=== PATIENT | female | born 1985 | race Caucasian/White ===

== ENCOUNTER → 2018-09-15 23:15 | Outpatient (CLI) | payer OTHER, SELFPAY ==
[2018-09-23 08:13] LABS: HPV HC, High Risk Negative (Negative)
[2018-09-23 08:22] LABS: HPV Reflexed? YES, CHARGE PATIENT
== END ==
PROVIDERS: Visit Provider Obstetrics & Gynecology
DX: Z12.4 Encounter for screening for malignant neoplasm of cervix (principal)
CPT/HCPCS: 87624; 88175; G0145

== ENCOUNTER → 2019-04-06 17:50 | Outpatient (CLI) | payer OTHER, SELFPAY ==
[2019-04-08 15:58] LABS: HPV Reflexed? NOT INDICATED
== END ==
PROVIDERS: Referring Provider Obstetrics & Gynecology; Visit Provider Obstetrics & Gynecology
DX: R87.610 Atypical squamous cells of undetermined significance on cytologic smear of cervix (ASC-US) (principal)
CPT/HCPCS: 88175; G0145

== ENCOUNTER 2019-08-18 06:58 | Day surgery (SDC) | payer OTHER, SELFPAY ==
--- NOTE | 2019-08-11 09:50 | HP_ITS ---
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 Is patient in pain?: No Allergies azithromycin Allergy (Mild, Verified 08/09/19 14:57) Other Penicillins Allergy (Mild, Verified 08/09/19 14:57) Unknown Sulfa (Sulfonamide Antibiotics) Allergy (Mild, Verified 08/09/19 14:57) Unknown Medications apple cider vinegar 600 mg capsule mg PO cap 08/09/19 [History Confirmed 08/09/19] bile yjnse-myds-cmjl-phenolpth tablet tab PO tab 08/09/19 [History] cholecalciferol (vitamin D3) 1,000 unit capsule 1,000 unit PO DAILY 08/09/19 [History Confirmed 08/09/19] choline bitartrate ER 300 mg tablet,extended release mg PO tab 08/09/19 [History Confirmed 08/09/19] digestive enzymes capsule 1 cap PO DAILY 08/09/19 [History] g.olji-fhhsfys-idt clover-yl yj-cnef-kclb-milk thist 500 mg-100 mg cap cap PO cap 08/09/19 [History] josé antonio root 325 mg-pyridoxine HCl (vitamin B6) 25 mg capsule cap PO cap 08/09/19 [History Confirmed 08/09/19] omeprazole 40 mg capsule,delayed release 40 mg PO DAILY 08/09/19 [History Confirmed 08/09/19] progesterone micronized 100 mg capsule 100 mg PO QAM 08/09/19 [History Confirmed 08/09/19] PFSH Medical History Fibromyalgia (Acute) GERD (gastroesophageal reflux disease) (Acute) Surgical History S/P abdominal hysterectomy (Acute) S/P endometrial ablation (Acute) Family History Grandfather Diabetes Heart disease CVA (cerebral vascular accident) Hypertension Grandmother Breast cancer Hypertension Thyroid disorder Mother Hypertension Colon cancer Thyroid disorder Social History (Updated 08/11/19 @ 09:50 by Musa Vizcaino MD) Smoking Status: Never smoker alcohol intake: never HPI HPI HPI: LASHAUN GARCIAS, is a 34 F who presents to the office today for HPI HPI Surgical H&P: Yes HPI: LASHAUN GARCIAS, is a 34 F who presents to the office today for several issues. Patient reports that she is in need of screening colonoscopy as her mother had colon cancer at the age of 43 and her last colonoscopy was 12 years ago. Patient also reports that she has had having severe GERD and is PPI dependent and would like to get off of her PPI. Patient is also having right upper quadrant pain when eating which radiates to the back. She had an ultrasound performed showed a large gallstone. ROS General General: No weight change or fatigue Cardio Cardiovascular: No murmur, pacemaker, heart disease, atrial fibrillation, high blood pressure, heart attack, heart stent, palpitations, shortness of breat with exertion or chest pain Psych Psychiatric: No depression or anxiety Resp Respiratory: No shortness of breath, No sleep apnea, No cough, No COPD, No asthma, No emphysema, No wheezing Gastro Gastrointestinal: Yes abdominal pain, Yes nausea or vomiting, No diarrhea, No constipation, No blood in stool, Yes acid reflux, No hemorrhoids, No ulcers, Yes gallbladder problem, No black,tarry stools Lionel Hematologic: No blood thinners Exam Const General: cooperative Orientation: alert, oriented x3 HENMT Head: normal to inspection Ears: hearing grossly normal bilaterally Eyes General: appearance normal, both eyes and all related structures Visual Lowe: normal visual lowe by confrontation Neck Neck: normal visual inspection Chest Chest palpation & inspection: normal inspection of the chest Resp Effort & Inspection: normal respiratory effort Auscultation: clear to auscultation bilaterally Cardio Rate: regular rate Rhythm: regular rhythm Heart Sounds: no murmurs GI Inspection: non-distended Palpation: soft, tender in the RUQ Musc Cervical Spine: normal cervical lordosis, cervical ROM normal Skin General: no rashes or lesions noted Neuro General: alert, oriented x3 Cranial Nerves: CN's II-XI intact bilaterally Cognition: normal cognition Extrem General: normal to inspection, full ROM Psych Appearance: grossly normal Affect: normal affect Assessment & Plan 1. Calculus of gallbladder without cholecystitis without obstruction K80.20 Plan Patient has calculus of the gallbladder and she is having pain typical of biliary colic. She reports right upper quadrant pain after eating which radiates to the back. I recommend laparoscopic cholecystectomy which may be done at the same time as Bala fundoplication. 2. Gastroesophageal reflux disease, esophagitis presence not specified K21.9 Plan Patient has long-standing GERD and would like to get off PPI. I discussed Bala fundoplication with her. I would recommend the patient first have manometry and EGD with pH probe. She will return to clinic after this is performed to discuss laparoscopic Bala fundoplication with concurrent laparoscopic cholecystectomy. Patient has a history of Orders Orders: EGD with 48 pH probe 08/10/19 Esophageal Manometry 08/10/19 3. Family history of malignant neoplasm of colon in first degree relative diagnosed when younger than 60 years of age Z80.0 Plan Patient has history of malignancy of the colon of her mother at age 43. Patient should be having screening colonoscopies every 5 years according to guidelines. I recommend that she had a screening colonoscopy at the same time of her EGD as pH probe. I explained endoscopy in detail to the patient. I explained the risks including but not limited to stroke or heart attack with anesthesia, perforation of the GI tract, bleeding, infection. I explained that any of these could necessitate further emergency surgery. The patient understands and all questions were answered sufficiently. The patient wishes to proceed with procedure. Musa Vizcaino MD Pager: [facility] [address] [place] [address], [address] [place] [address] Office: Orders Orders: Colonoscopy 08/10/19 Coding Level of Care Code Off vis,new,level 4 Diagnoses Calculus of gallbladder without cholecystitis without obstruction K80.20 ??Cholelithiasis location: gallbladder ??Cholecystitis presence: without cholecystitis ??Biliary obstruction: without biliary obstruction Gastroesophageal reflux disease, esophagitis presence not specified K21.9 ??Esophagitis presence: esophagitis presence not specified Family history of malignant neoplasm of colon in first degree relative diagnosed when younger than 60 years of age Z80.0 Time Spent (min) 45 08/11/19 0963 <Electronically signed by Musa celaya MD> Date _ Musa Vizcaino MD
[2019-08-18 07:15] VITALS: BP 123/85; PULSE 71; RESP 16; TEMP 36.8; O2SAT 100
== END 2019-08-18 07:54 | disposition home or self-care (01) ==
PROVIDERS: Family Provider Family Medicine; PCP Family Medicine; Referring Provider Family Medicine; Visit Provider Surgery
PROC: F00ZJWZ Instrumental Swallowing and Oral Function Assessment using Swallowing Equipment (ICD-10-PCS; CPT 43235; principal; 2019-08-18 06:55)
DX: K21.9 Gastro-esophageal reflux disease without esophagitis (principal); K80.20 Calculus of gallbladder without cholecystitis without obstruction; Z80.0 Family history of malignant neoplasm of digestive organs
CPT/HCPCS: 91010

== ENCOUNTER 2019-08-30 08:29 | Day surgery (SDC) | payer OTHER, SELFPAY ==
--- NOTE | 2019-08-11 09:50 | HP_ITS ---
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 Is patient in pain?: No Allergies azithromycin Allergy (Mild, Verified 08/09/19 14:57) Other Penicillins Allergy (Mild, Verified 08/09/19 14:57) Unknown Sulfa (Sulfonamide Antibiotics) Allergy (Mild, Verified 08/09/19 14:57) Unknown Medications apple cider vinegar 600 mg capsule mg PO cap 08/09/19 [History Confirmed 08/09/19] bile objmv-tzfz-ypyb-phenolpth tablet tab PO tab 08/09/19 [History] cholecalciferol (vitamin D3) 1,000 unit capsule 1,000 unit PO DAILY 08/09/19 [History Confirmed 08/09/19] choline bitartrate ER 300 mg tablet,extended release mg PO tab 08/09/19 [History Confirmed 08/09/19] digestive enzymes capsule 1 cap PO DAILY 08/09/19 [History] g.wyxb-eorhbeo-gql clover-yl eg-owuo-zvwj-milk thist 500 mg-100 mg cap cap PO cap 08/09/19 [History] josé antonio root 325 mg-pyridoxine HCl (vitamin B6) 25 mg capsule cap PO cap 08/09/19 [History Confirmed 08/09/19] omeprazole 40 mg capsule,delayed release 40 mg PO DAILY 08/09/19 [History Confirmed 08/09/19] progesterone micronized 100 mg capsule 100 mg PO QAM 08/09/19 [History Confirmed 08/09/19] PFSH Medical History Fibromyalgia (Acute) GERD (gastroesophageal reflux disease) (Acute) Surgical History S/P abdominal hysterectomy (Acute) S/P endometrial ablation (Acute) Family History Grandfather Diabetes Heart disease CVA (cerebral vascular accident) Hypertension Grandmother Breast cancer Hypertension Thyroid disorder Mother Hypertension Colon cancer Thyroid disorder Social History (Updated 08/11/19 @ 09:50 by Musa Vizcaino MD) Smoking Status: Never smoker alcohol intake: never HPI HPI HPI: LASHAUN GARCIAS, is a 34 F who presents to the office today for HPI HPI Surgical H&P: Yes HPI: LASHAUN GARCIAS, is a 34 F who presents to the office today for several issues. Patient reports that she is in need of screening colonoscopy as her mother had colon cancer at the age of 43 and her last colonoscopy was 12 years ago. Patient also reports that she has had having severe GERD and is PPI dependent and would like to get off of her PPI. Patient is also having right upper quadrant pain when eating which radiates to the back. She had an ultrasound performed showed a large gallstone. ROS General General: No weight change or fatigue Cardio Cardiovascular: No murmur, pacemaker, heart disease, atrial fibrillation, high blood pressure, heart attack, heart stent, palpitations, shortness of breat with exertion or chest pain Psych Psychiatric: No depression or anxiety Resp Respiratory: No shortness of breath, No sleep apnea, No cough, No COPD, No asthma, No emphysema, No wheezing Gastro Gastrointestinal: Yes abdominal pain, Yes nausea or vomiting, No diarrhea, No constipation, No blood in stool, Yes acid reflux, No hemorrhoids, No ulcers, Yes gallbladder problem, No black,tarry stools Lionel Hematologic: No blood thinners Exam Const General: cooperative Orientation: alert, oriented x3 HENMT Head: normal to inspection Ears: hearing grossly normal bilaterally Eyes General: appearance normal, both eyes and all related structures Visual Lowe: normal visual lowe by confrontation Neck Neck: normal visual inspection Chest Chest palpation & inspection: normal inspection of the chest Resp Effort & Inspection: normal respiratory effort Auscultation: clear to auscultation bilaterally Cardio Rate: regular rate Rhythm: regular rhythm Heart Sounds: no murmurs GI Inspection: non-distended Palpation: soft, tender in the RUQ Musc Cervical Spine: normal cervical lordosis, cervical ROM normal Skin General: no rashes or lesions noted Neuro General: alert, oriented x3 Cranial Nerves: CN's II-XI intact bilaterally Cognition: normal cognition Extrem General: normal to inspection, full ROM Psych Appearance: grossly normal Affect: normal affect Assessment & Plan 1. Calculus of gallbladder without cholecystitis without obstruction K80.20 Plan Patient has calculus of the gallbladder and she is having pain typical of biliary colic. She reports right upper quadrant pain after eating which radiates to the back. I recommend laparoscopic cholecystectomy which may be done at the same time as Abla fundoplication. 2. Gastroesophageal reflux disease, esophagitis presence not specified K21.9 Plan Patient has long-standing GERD and would like to get off PPI. I discussed Bala fundoplication with her. I would recommend the patient first have manometry and EGD with pH probe. She will return to clinic after this is performed to discuss laparoscopic Bala fundoplication with concurrent laparoscopic cholecystectomy. Patient has a history of Orders Orders: EGD with 48 pH probe 08/10/19 Esophageal Manometry 08/10/19 3. Family history of malignant neoplasm of colon in first degree relative diagnosed when younger than 60 years of age Z80.0 Plan Patient has history of malignancy of the colon of her mother at age 43. Patient should be having screening colonoscopies every 5 years according to guidelines. I recommend that she had a screening colonoscopy at the same time of her EGD as pH probe. I explained endoscopy in detail to the patient. I explained the risks including but not limited to stroke or heart attack with anesthesia, perforation of the GI tract, bleeding, infection. I explained that any of these could necessitate further emergency surgery. The patient understands and all questions were answered sufficiently. The patient wishes to proceed with procedure. Musa Vizcaino MD Pager: [facility] [address] [place] [address], [address] [place] [address] Office: Orders Orders: Colonoscopy 08/10/19 Coding Level of Care Code Off vis,new,level 4 Diagnoses Calculus of gallbladder without cholecystitis without obstruction K80.20 ??Cholelithiasis location: gallbladder ??Cholecystitis presence: without cholecystitis ??Biliary obstruction: without biliary obstruction Gastroesophageal reflux disease, esophagitis presence not specified K21.9 ??Esophagitis presence: esophagitis presence not specified Family history of malignant neoplasm of colon in first degree relative diagnosed when younger than 60 years of age Z80.0 Time Spent (min) 45 08/11/19 0932 <Electronically signed by Musa celaya MD> Date _ Musa Vizcaino MD
[2019-08-30] VITALS (7 sets, daily range): BP systolic 88–108; BP diastolic 49–68; PULSE 66–78; RESP 16–18; TEMP 36.1–36.7; O2SAT 96–100; BMI 31.9
[2019-08-30] MEDS: Lactated Ringers 1,000 ML 100 ML IV (09:13)
--- NOTE | 2019-08-30 09:18 | PCM.HP.BLA ---
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 Is patient in pain?: No Allergies azithromycin Allergy (Mild, Verified 08/09/19 14:57) Other Penicillins Allergy (Mild, Verified 08/09/19 14:57) Unknown Sulfa (Sulfonamide Antibiotics) Allergy (Mild, Verified 08/09/19 14:57) Unknown Medications apple cider vinegar 600 mg capsule mg PO cap 08/09/19 [History Confirmed 08/09/19] bile sfmsx-zggw-jrvq-phenolpth tablet tab PO tab 08/09/19 [History] cholecalciferol (vitamin D3) 1,000 unit capsule 1,000 unit PO DAILY 08/09/19 [History Confirmed 08/09/19] choline bitartrate ER 300 mg tablet,extended release mg PO tab 08/09/19 [History Confirmed 08/09/19] digestive enzymes capsule 1 cap PO DAILY 08/09/19 [History] gDanielaggfg-fxfzjdm-kxu clover-yl ex-tvma-yroz-milk thist 500 mg-100 mg cap cap PO cap 08/09/19 [History] josé antonio root 325 mg-pyridoxine HCl (vitamin B6) 25 mg capsule cap PO cap 08/09/19 [History Confirmed 08/09/19] omeprazole 40 mg capsule,delayed release 40 mg PO DAILY 08/09/19 [History Confirmed 08/09/19] progesterone micronized 100 mg capsule 100 mg PO QAM 08/09/19 [History Confirmed 08/09/19] PFSH Medical History Fibromyalgia (Acute) GERD (gastroesophageal reflux disease) (Acute) Surgical History S/P abdominal hysterectomy (Acute) S/P endometrial ablation (Acute) Family History Grandfather Diabetes Heart disease CVA (cerebral vascular accident) Hypertension Grandmother Breast cancer Hypertension Thyroid disorder Mother Hypertension Colon cancer Thyroid disorder Social History (Updated 08/11/19 @ 09:50 by Musa Vizcaino MD) Smoking Status: Never smoker alcohol intake: never HPI HPI HPI: LASHAUN GARCIAS, is a 34 F who presents to the office today for HPI HPI Surgical H&P: Yes HPI: LASHAUN GARCIAS, is a 34 F who presents to the office today for several issues. Patient reports that she is in need of screening colonoscopy as her mother had colon cancer at the age of 43 and her last colonoscopy was 12 years ago. Patient also reports that she has had having severe GERD and is PPI dependent and would like to get off of her PPI. Patient is also having right upper quadrant pain when eating which radiates to the back. She had an ultrasound performed showed a large gallstone. ROS General General: No weight change or fatigue Cardio Cardiovascular: No murmur, pacemaker, heart disease, atrial fibrillation, high blood pressure, heart attack, heart stent, palpitations, shortness of breat with exertion or chest pain Psych Psychiatric: No depression or anxiety Resp Respiratory: No shortness of breath, No sleep apnea, No cough, No COPD, No asthma, No emphysema, No wheezing Gastro Gastrointestinal: Yes abdominal pain, Yes nausea or vomiting, No diarrhea, No constipation, No blood in stool, Yes acid reflux, No hemorrhoids, No ulcers, Yes gallbladder problem, No black,tarry stools Lionel Hematologic: No blood thinners Exam Const General: cooperative Orientation: alert, oriented x3 HENMT Head: normal to inspection Ears: hearing grossly normal bilaterally Eyes General: appearance normal, both eyes and all related structures Visual Lowe: normal visual lowe by confrontation Neck Neck: normal visual inspection Chest Chest palpation & inspection: normal inspection of the chest Resp Effort & Inspection: normal respiratory effort Auscultation: clear to auscultation bilaterally Cardio Rate: regular rate Rhythm: regular rhythm Heart Sounds: no murmurs GI Inspection: non-distended Palpation: soft, tender in the RUQ Musc Cervical Spine: normal cervical lordosis, cervical ROM normal Skin General: no rashes or lesions noted Neuro General: alert, oriented x3 Cranial Nerves: CN's II-XI intact bilaterally Cognition: normal cognition Extrem General: normal to inspection, full ROM Psych Appearance: grossly normal Affect: normal affect Assessment & Plan 1. Calculus of gallbladder without cholecystitis without obstruction K80.20 Plan Patient has calculus of the gallbladder and she is having pain typical of biliary colic. She reports right upper quadrant pain after eating which radiates to the back. I recommend laparoscopic cholecystectomy which may be done at the same time as Bala fundoplication. 2. Gastroesophageal reflux disease, esophagitis presence not specified K21.9 Plan Patient has long-standing GERD and would like to get off PPI. I discussed Bala fundoplication with her. I would recommend the patient first have manometry and EGD with pH probe. She will return to clinic after this is performed to discuss laparoscopic Bala fundoplication with concurrent laparoscopic cholecystectomy. Patient has a history of Orders Orders: EGD with 48 pH probe 08/10/19 Esophageal Manometry 08/10/19 3. Family history of malignant neoplasm of colon in first degree relative diagnosed when younger than 60 years of age Z80.0 Plan Patient has history of malignancy of the colon of her mother at age 43. Patient should be having screening colonoscopies every 5 years according to guidelines. I recommend that she had a screening colonoscopy at the same time of her EGD as pH probe. I explained endoscopy in detail to the patient. I explained the risks including but not limited to stroke or heart attack with anesthesia, perforation of the GI tract, bleeding, infection. I explained that any of these could necessitate further emergency surgery. The patient understands and all questions were answered sufficiently. The patient wishes to proceed with procedure. Musa Vizcaino MD Pager: [facility] [address] [place] [address], [address] [place] [address] Office:
--- NOTE | 2019-08-30 10:19 | OP.ENDO_ITS ---
08/30/2019 Rubens Dougherty Md Re : Upper GI endoscopy procedure for Arley Collado Dear Farhat This procedure was performed on Friday, August 30, 2019. My impressions and recommendations are as follows: Impressions : - Normal esophagus. - Normal stomach. - Normal examined duodenum. - The CAR pH capsule was positioned 36 cm from the incisors, which was 6 cm proximal to the GE junction. - No specimens collected. Recommendations : - Discharge patient to home. - Resume previous diet. - Continue present medications. - Return to my office in 2 weeks. My findings are described in the full procedure note, which is enclosed. If I can be of further assistance, please feel free to contact me at Doctor phone number(s): , Work: . Sincerely, Musa Vizcaino MD 08/30/2019 10:19:06 AM This report has been signed electronically.
--- NOTE | 2019-08-30 10:21 | OP.ENDO_ITS ---
08/30/2019 Rubens Dougherty Md Re : Colonoscopy procedure for Arley Collado Dear Farhat This procedure was performed on Friday, August 30, 2019. My impressions and recommendations are as follows: Impressions : - The entire examined colon is normal on direct and retroflexion views. - No specimens collected. Recommendations : - Resume previous diet. - Continue present medications. - Repeat colonoscopy in 5 years for screening purposes. My findings are described in the full procedure note, which is enclosed. If I can be of further assistance, please feel free to contact me at Doctor phone number(s): , Work: . Sincerely, Musa Vizcaino MD 08/30/2019 10:20:51 AM This report has been signed electronically.
== END 2019-08-30 11:31 | disposition home or self-care (01) ==
LOC: EN 08:30 → AC 08:31
PROVIDERS: Family Provider Family Medicine; PCP Family Medicine; Referring Provider Family Medicine; Visit Provider Surgery
PROC: 0DJD8ZZ Inspection of Lower Intestinal Tract, Via Natural or Artificial Opening Endoscopic (ICD-10-PCS; CPT 45378; principal; 2019-08-30 09:25)
DX: K21.9 Gastro-esophageal reflux disease without esophagitis (principal); Z12.11 Encounter for screening for malignant neoplasm of colon; Z80.0 Family history of malignant neoplasm of digestive organs; K80.20 Calculus of gallbladder without cholecystitis without obstruction; M79.7 Fibromyalgia
CPT/HCPCS: 43235; 45378; J7120; J2405

== ENCOUNTER 2019-10-03 14:50 | Observation (INO) | payer OTHER, SELFPAY ==
[2019-09-13 08:46] VITALS: BMI 31.9
--- NOTE | 2019-09-14 01:09 | HP_ITS ---
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 Is patient in pain?: Yes (epigastric and RUQ pain) Allergies azithromycin Allergy (Mild, Verified 09/13/19 08:46) Other Penicillins Allergy (Mild, Verified 09/13/19 08:46) Unknown Sulfa (Sulfonamide Antibiotics) Allergy (Mild, Verified 09/13/19 08:46) Unknown Medications apple cider vinegar 600 mg capsule 600 mg PO DAILY PRN cap 08/09/19 [History Confirmed 09/13/19] bile xcyji-zrkk-hbnu-phenolpth tablet 1 tab PO DAILY tab 08/09/19 [History Confirmed 09/13/19] cholecalciferol (vitamin D3) 1,000 unit capsule 1,000 unit PO DAILY 08/09/19 [History Confirmed 09/13/19] choline bitartrate ER 300 mg tablet,extended release 300 mg PO DAILY tab 08/09/19 [History Confirmed 09/13/19] digestive enzymes capsule 1 cap PO DAILY 08/09/19 [History Confirmed 09/13/19] g.lgap-orwpayf-llw clover-yl ln-icvn-ybvh-milk thist 500 mg-100 mg cap 1 cap PO DAILY cap 08/09/19 [History Confirmed 09/13/19] josé antonio root 325 mg-pyridoxine HCl (vitamin B6) 25 mg capsule 1 cap PO DAILY cap 08/09/19 [History Confirmed 09/13/19] omeprazole 40 mg capsule,delayed release 40 mg PO DAILY 08/09/19 [History Confirmed 09/13/19] progesterone micronized 100 mg capsule 100 mg PO QAM 08/09/19 [History Confirmed 09/13/19] PFSH Medical History Fibromyalgia (Acute) GERD (gastroesophageal reflux disease) (Acute) Surgical History S/P abdominal hysterectomy (Acute) S/P endometrial ablation (Acute) Family History Grandfather Diabetes Heart disease CVA (cerebral vascular accident) Hypertension Grandmother Breast cancer Hypertension Thyroid disorder Mother Hypertension Colon cancer Thyroid disorder Social History (Updated 09/14/19 @ 10:14 by Musa Vizcaino MD) Smoking Status: Never smoker alcohol intake: never HPI HPI HPI: LASHAUN GARCIAS, is a 34 F who presents to the office today for HPI HPI Surgical H&P: Yes HPI: LASHAUN GARCIAS, is a 34 F who presents to the office today for discussion of surgical options. The patient underwent colonoscopy as well as EGD with pH probe and manometry. ROS General General: No weight change or fatigue Cardio Cardiovascular: No murmur, pacemaker, heart disease, atrial fibrillation, high blood pressure, heart attack, heart stent, palpitations, shortness of breat with exertion or chest pain Psych Psychiatric: No depression or anxiety Resp Respiratory: No shortness of breath, No sleep apnea, No cough, No COPD, No asthma, No emphysema, No wheezing Gastro Gastrointestinal: Yes abdominal pain, Yes nausea or vomiting, No diarrhea, No constipation, No blood in stool, Yes acid reflux, No hemorrhoids, No ulcers, Yes gallbladder problem, No black,tarry stools Lionel Hematologic: No blood thinners Exam Const General: cooperative Orientation: alert, oriented x3 Resp Effort & Inspection: normal respiratory effort Auscultation: clear to auscultation bilaterally Cardio Rate: regular rate Rhythm: regular rhythm Heart Sounds: no murmurs GI Inspection: non-distended Palpation: soft, nontender Assessment & Plan Problems 1. Calculus of gallbladder without cholecystitis without obstruction K80.20 2. Gastroesophageal reflux disease without esophagitis K21.9 Plan I discussed the patient's presurgical testing with her. The patient does have a large gallstone. She also has reflux demonstrated by her pH probe. Her manometry was read as the lower limits of normal with normal LES relaxation. Given the results of her manometry I would recommend a 180 degree toupee fundoplication. I would also perform a cholecystectomy at the same time due to her large gallstone and right upper quadrant pain. I discussed laparoscopic toupee fundoplication as well as laparoscopic cholecystectomy. I discussed the procedures in detail as well as the risks. I discussed the risks including but not limited to bleeding, infection, injury to surrounding organs such as the bile duct, liver, bowels. I also discussed the risks adherent to the fundoplication such as gas bloat syndrome and slippage of the wrap as well as esophageal injury or perforation, and dysphagia. The patient understands the risks and would like to proceed with both procedures. I did offer her only laparoscopic cholecystectomy but she would like to find the location as well to get off of her PPI. I also discussed liquid diet postoperatively as well as foods that are allowed or discouraged with her. Musa Vizcaino MD Pager: [facility] [address] [place] [address], [address] [place] [address] Office: Coding Level of Care Code Off vis,est,level 4 Diagnoses Calculus of gallbladder without cholecystitis without obstruction K80.20 ??Cholelithiasis location: gallbladder ??Cholecystitis presence: without cholecystitis ??Biliary obstruction: without biliary obstruction Gastroesophageal reflux disease without esophagitis K21.9 ??Esophagitis presence: without esophagitis Time Spent (min) 45 09/14/19 1014 <Electronically signed by Musa celaya MD> Date _ Musa Vizcaino MD I have re-examined the patient. There are no clinical changes since date of exam.
[2019-10-03] VITALS (11 sets, daily range): BP systolic 85–113; BP diastolic 54–75; PULSE 53–73; RESP 15–20; TEMP 36.5–36.8; O2SAT 92–99; BMI 32.9
--- NOTE | 2019-10-03 10:28 | EKG12_ITS ---
Test Reason : PRE OP Blood Pressure : / mmHG Vent. Rate : 063 BPM Atrial Rate : 063 BPM P-R Int : 182 ms QRS Dur : 080 ms QT Int : 414 ms P-R-T Axes : 022 011 007 degrees QTc Int : 423 ms Sinus rhythm with marked sinus arrhythmia Otherwise normal ECG No previous ECGs available Confirmed by LILLIANA PAZ ([id number]), art editor MOODY HORTA ([id number]) on 10/07/2019 12:05:21 PM Referred By: Musa Vizcaino Confirmed By:LILLIANA PAZ
[2019-10-03] MEDS: Lactated Ringers 1,000 ML 100 ML IV ×2 (10:52→15:15)
--- NOTE | 2019-10-03 11:50 | GALL_PTH ---
PATIENT: LASHAUN GARCIAS LOC: MS3 U#:[id number] AGE/SX: 34/F ROOM: MS313 RE10/03/[address]: Dr. Musa Vizcaino MD : [id number] BED: 1 DIS: 10/04/2019 SPEC #: [id number] RECD: 10/03/19 16:13 STATUS: KRISTEN ST #: [id number] DOUG: 10/03/19 11:[address]: Musa Vizcaino DEPT: SURGICAL PATHOLOGY RECD BY: Belem Chu ENTERED: 10/04/19 10:59 SP TYPE: LINDA ONOFRE DR: Dr. Rubens Dougherty MD Tissues: Gallbladder, NOS Procedures: Surgery Specimen Level III HEADER OPERATION: Laparoscopic, cholecystectomy with IOC, Toupet fundoplication PRE-OP DIAGNOSIS: Calculus of gallbladder without cholecystitis without obstruction, gastroesophageal reflux disease without esophagitis TISSUE SUBMITTED: Gallbladder MICROSCOPIC DIAGNOSIS Gallbladder, cholecystectomy: Cholesterolosis, chronic cholecystitis and cholelithiasis. AM:jamey 10/05/19 MICROSCOPIC DESCRIPTION Slides are reviewed. GROSS DESCRIPTION Received is one container labeled with the patient's name and designated gallbladder. The specimen consists of a gallbladder measuring 9.5 cm in length and 4.5 cm in diameter. The external surface is pink-castrejon, smooth and glistening for the most part. Focally it is granular, hemorrhagic and contains cautery artifact. The gallbladder contains green-yellow mucoid bile and one light brown stone measuring 1.5 x 1.5 x 1 cm. The mucosa also shows several yellowish streaks consistent with cholesterolosis. The mucosa is bile-stained and without any mass lesions. The gallbladder wall measures up to 0.2 cm in thickness. Produce Weigher sections from the gallbladder and the cystic duct are submitted in one cassette. / SJ:jamey 10/04/19 TC:3 CPT: 79897
--- NOTE | 2019-10-03 12:17 | RAD_ITS ---
STUDY: INTRAOPERATIVE CHOLANGIOGRAM REASON FOR EXAM: Female, 34 years old. Cholecystitis RADIATION DOSAGE (If Supplied By Facility): CTDIvol = ( ) mGy, DLP = ( ) mGycm. Individualized dose optimization techniques were used for this CT.? TECHNIQUE: Intraoperative COMPARISON: None. FINDINGS: After cholecystectomy, intraoperative cholangiogram performed by Dr. Vizcaino. The cystic duct remnant was cannulized and contrast injected in a retrograde manner. No extravasation of contrast noted. No abnormal biliary dilatation noted. RAD/Cholangiogram/ O R,Initial IMPRESSION: Normal intraoperative cholangiogram Electronically Signed: Asif Ayers MD at 13:56 EST , Service support ,
--- NOTE | 2019-10-03 15:14 | OP.PCM_ITS ---
Problem List (1) Cholelithiasis Status: Acute Qualifiers: Cholelithiasis location: gallbladder Cholecystitis presence: without cholecystitis Biliary obstruction: without biliary obstruction Qualified Code(s): K80.20 - Calculus of gallbladder without cholecystitis without obstruction (2) GERD (gastroesophageal reflux disease) Status: Acute Qualifiers: Esophagitis presence: without esophagitis Qualified Code(s): K21.9 - Gastro-esophageal reflux disease without esophagitis Report of Operation Date of Procedure: 10/03/19 Pre-Operative Diagnosis: 1. GERD. 2. Cholelithiasis Post-Operative Diagnosis: Same Surgery/Procedure Performed:: 1. Laparoscopic hiatal hernia repair with toupee fundoplication. 2. EGD. 3. Laparoscopic cholecystectomy with cholangiogram Specimen's removed: Gallbladder Description of Procedure: After obtaining informed consent patient was brought back to the operating room. General anesthesia was induced. The abdomen was prepped and draped in usual sterile fashion. A small midline incision was made inferior to the umbilicus and deepened to the level of fascia. The fascia was elevated and incised. Next the peritoneum was elevated and incised in the same fashion. Finger sweep was performed and the Vázquez trocar was placed into the abdomen. The balloon was inflated. The abdomen was inflated to 15 mmHg. Next a camera was introduced into the abdomen and the abdomen was inspected. Next under direct visualization three 5-mm ports were placed one subxiphoid and 2 subcostal. Next the gallbladder was elevated and retracted toward the right shoulder. The peritoneum was stripped from the gallbladder. The infundibulum was located and retracted laterally. Next the triangle of Calot was dissected and the cystic duct and cystic artery were identified. Cholangiograms were performed. The Benitez clamp was used to clamp across the infundibulum and the catheter needle was inserted into the gallbladder. Under fluoroscopy contrast was instilled into the gallbladder and the common duct, cystic duct as well as proximal hepatic ducts were identified. There was good filling of the duodenum. There were no filling defects noted in the common bile duct. The clamp was removed as well as the needle and the infundibulum was grasped once more. Three hemolock clips were placed across the cystic duct. The cystic duct was then divided leaving 2 clips on the stump. The cystic artery was clipped and divided in the same fashion. The hook cautery was then used to take the gallbladder off of the gallbladder bed. Hemostasis was obtained. Gallbladder fossa was irrigated and no active bleeding or bile leakage was noted. Next the camera switched to a 5 mm camera and introduced in the subxiphoid port. An Endopouch bag was placed through the umbilical port and the gallbladder was placed into it. The gallbladder was then removed through the umbilical incision. The camera was then reinserted through the umbilical port. The gallbladder fossa was inspected once more and noted to be hemostatic with no leaking bile. The abdomen was suctioned dry. Next the procedure was converted to hiatal hernia repair with toupee fundoplication. An additional left side of the abdomen with 5 mm port was placed under direct visualization. Next the subxiphoid port was removed and the Augustus liver retractor was set up to elevate the left lobe of the liver. Next the gastro hepatic ligament was taken down until the right crura was identified. Dissection was taken between the crura and the esophagus pos teriorly and the posterior vagus was identified and elevated with the esophagus. Dissection was taken to the left crura. Next the superior greater curvature of the stomach was divided from the omentum and the short splenic vessels. This was done with the harmonic. Once the left crura was reached a grasper was placed through the inferior dissected window including the vagus nerve and a Gregg was placed around the structure and used to retract the esophagus inferiorly. Harmonic scalpel was used to dissect the esophagus circumferentially so that there was enough length there is at least 2 cm of esophagus in the abdomen with no tension. Next the esophagus was retracted laterally and using interrupted 0 Ethibond sutures the crura was reapproximated. Next the NG tube was removed and the stomach was passed posteriorly around the esophagus and a [place] was removed. This stayed in place well with no retraction. Next the posterior stomach was sutured to the hiatus with an 0 Ethibond suture. Next the right side was sutured in a continuous fashion with 2-0 Ethibond from the superior crura down to the stomach and esophagus. In the same fashion the left side stomach was sutured to the esophagus in a running fashion. The wrap was placed in approximately 180 degrees posterior. There was good opening on the anterior surface of the esophagus without coverage of the stomach to allow for no dysphasia. Next the patient was flattened and irrigation was placed in the upper abdomen. Next an EGD was performed. The EGD scope was placed into the mouth and down into the esophagus. I passed easily into the stomach and stomach was insufflated. There was no air leak. The scope was retroflexed and the wrap appeared in good position. There was no bleeding. The stomach was suctioned and the scope was removed. The scope was passed through the GE junction several times and it appeared to have no stricturing and it was not overly tight. The irrigation was then suctioned dry from the abdomen. The gallbladder fossa was inspected one more time and appeared to be having good hemostasis and no bile leak. The 5 mm ports were removed under direct visualization. The umbilical port was then removed and the air was removed from the abdomen. Next using an 0 Vicryl suture the umbilical fascia was closed in a cjlrio-ib-ymztl fashion. The umbilical port site was irrigated local anesthetic was administered to all the incisions. All the incisions were closed with interrupted subcuticular 4-0 Monocryl sutures followed by Steri-Strips and dressings. The patient was awoken and taken to PACU in stable condition. - Admit VTE Documentation VTE Mechan Device Prophylaxis: SCD's
[2019-10-03] MEDS: 0.9% Normal Saline 1,000 ML 100 ML IV (15:56)
[2019-10-03] MEDS: Morphine 2 MG/ML Syringe IV (16:47)
[2019-10-03] MEDS: Ondansetron 4 MG/2 ML Vial IV (16:48)
[2019-10-03] MEDS: Ketorolac 15 MG/ML Vial IV (21:43)
[2019-10-04] MEDS: 0.9% Normal Saline 1,000 ML 100 ML IV (01:59)
[2019-10-04 02:02] VITALS: BP 102/57; PULSE 75; RESP 16; TEMP 36.9; O2SAT 94
[2019-10-04] MEDS: Morphine 2 MG/ML Syringe IV (04:10)
[2019-10-04 06:24] LABS: Absolute Lymphocyte Count 1.85 X10^3/uL (0.83-4.51); Absolute Neutrophil Count 8.4 X10^3/uL (2.0-7.7); Basophil# 0.03 X10^3/uL; Basophil% 0.3 % (0-1); Eosinophil# 0.03 X10^3/uL; Eosinophils% 0.3 % (0-5); Hematocrit 35.5 % (37-47); Hemoglobin 11.7 g/dL (12.0-15.0); Lymphocyte # 1.85 X10^3/ul (4.0); Lymphocyte % 16.5 % (19-41); Mean Corpuscular Hgb 29.7 pg (27.0-32.0); Mean Corpuscular Volume 90.1 fL (81-99); Mean Platelet Vol. 10.4 fl (6.2-12.0); Monocyte# 0.93 X10^3/uL; Monocyte% 8.3 % (0-10); NRBC Flagged by Analyzer 0 % (0-5); Neutrophil # 8.36 X10^3/uL (2.7-7.7); Neutrophil % 74.2 % (47-70); Platelet Count 305 K/mm3 (150-450); RBC Distribution Width CV 12.2 % (11.6-14.6); RBC Distribution Width SD 40.1 fl (35.1-43.9); Red Blood Count 3.94 M/mm3 (4.2-5.4); White Blood Count 11.2 K/mm3 (4.4-11.0)
[2019-10-04 06:48] LABS: Anion Gap 7 (5-15); BUN 10 mg/dL (7-18); BUN/Creat Ratio 15.9 RATIO (10-20); Calcium,Total 8.1 mg/dL (8.5-10.1); Chloride 114 mmol/L (98-107); Creatinine, Serum 0.63 mg/dL (0.55-1.02); EST Glomerular Filtration Rate 113 mL/min (>60); Est Glom Filt Rate - Afr Amer 137 mL/min (>60); Estimated Creatinine Clearance 102.12 ml/min; Glucose 90 mg/dL (74-106); Potassium 3.3 mmol/L (3.5-5.1); Sodium Level 145 mmol/L (136-145)
--- NOTE | 2019-10-04 07:36 | PCM.PN.SRG ---
Subjective: Patient is doing well today. She has pain at her epigastric incision site but no other abdominal pain. No nausea or vomiting. - Physical Exam Vitals/I&O's: Vital Signs Temp Pulse Resp BP Pulse Ox 98.4 F 75 16 102/57 L 94 10/04/19 02:02 10/04/19 02:02 10/04/19 02:02 10/04/19 02:02 10/04/19 02:02 Oxygen Delivery Method Room Air Weight: 186 lb 1.122 oz Body Mass Index (BMI) 32.9 Intake and Output for Last 24 Hours 10/02/19 10/03/19 10/04/19 23:59 23:59 23:59 Intake Total 2105 / 999 Output Total 0 / 0 Balance 2105 General: Alert, Oriented x3 Lungs: Normal air movement Abdomen: Soft, Non Tender, Non-Distended Laboratory Results 10/04/19 05:50: WBC 11.2 H, RBC 3.94 L, Hgb 11.7 L, Hct 35.5 L, MCV 90.1, MCH 29.7, MCHC 33.0, RDW Std Deviation 40.1, RDW Coeff of Day 12.2, Plt Count 305, MPV 10.4, Immature Gran % (Auto) 0.400, Neut % (Auto) 74.2 H, Lymph % (Auto) 16.5 L, [place] % (Auto) 8.3, Eos % (Auto) 0.3, Baso % (Auto) 0.3, Absolute Neuts (auto) 8.4 H, Absolute Lymphs (auto) 1.85, Nucleated RBC % 0 10/04/19 05:50: Sodium 145, Potassium 3.3 L, Chloride 114 H, Carbon Dioxide 24.0, Anion Gap 7, BUN 10, Creatinine 0.63, Estim Creat Clear Calc 102.12, Est GFR (MDRD) Af Amer 137, Est GFR (MDRD) Non-Af 113, BUN/Creatinine Ratio 15.9, Glucose 90, Calcium 8.1 L Current Medications Acetaminophen (Tylenol Liquid) 650 mg PO Q6H PRN PRN PRN Reason: Pain Score 4-10/10 Lactated Ringer's () 1,000 mls @ 100 mls/hr IV .Q10H [facility] Last Infusion: 10/03/19 15:56 Dose: Infused Documented by: Sodium Chloride () 1,000 mls @ 40 mls/hr IV .Q25H [facility] Last Admin: 10/04/19 01:59 Dose: 100 mls/hr Documented by: Ketorolac Tromethamine (Toradol) 15 mg IV Q8H PRN PRN PRN Reason: Pain Score 6-10/10 Stop: 10/08/19 14:51 Last Admin: 10/03/19 21:43 Dose: 15 mg Documented by: Morphine Sulfate () 2 - 4 mg IV Q2H PRN PRN PRN Reason: Pain Score 6-10/10 Last Admin: 10/04/19 04:10 Dose: 2 mg Documented by: Ondansetron HCl (Zofran) 4 mg IV Q6H PRN PRN PRN Reason: NAUSEA/VOMITING Last Admin: 10/03/19 16:48 Dose: 4 mg Documented by: Sodium Chloride () 10 - 40 ml IV UD PRN PRN Reason: SALINE FLUSH Medical Necessity - Tobacco Use Smoking Status: Never smoker Tobacco Use: Non-smoker Assessment/Plan All Active Problems (Last Reviewed 09/13/19 @ 08:45 by Anneliese Mansfield) Cholelithiasis (Acute) GERD (gastroesophageal reflux disease) (Acute) Family history of malignant neoplasm of colon in first degree relative diagnosed when younger than 60 years of age (Acute) 34-year-old female status post lap scopic cholecystectomy with hiatal hernia repair and toupee fundoplication 1. Patient appears to be doing well this morning. She has some pain at her epigastric port site. This was where the retractor was lifting the liver during the hiatal hernia repair. I will start her on some liquid Tylenol as well as a clear liquid diet. If she tolerates that she can be discharged this afternoon. Musa Vizcaino MD Pager: [facility] [address] [place] [address], [address] [place] [address] Office:
[2019-10-04] MEDS: Ketorolac 15 MG/ML Vial IV (07:37)
[2019-10-04 10:50] VITALS: BP 102/59; PULSE 67; RESP 16; TEMP 36.4; O2SAT 97
--- NOTE | 2019-10-04 15:14 | DCINST_ITS ---
You will use the following diet at home:: Clear liquid - Advance to Full liquid thursday Discharge Activity: Return to Normal Activity, May Shower Lifting Restrictions: 20 lbs for 2 weeks Call your doctor if your incision/area has: Continuous Slow Oozing, Sudden Increased Bleeding, Increased Pain/ Swelling, Increased Redness, Foul Smelling Discharge, Swelling at the incision site Call your doctor if you observe: Fever of 101 or Higher Remove Dressing in (days):: 1 - Remove clear bandages tomorrow, remove steri strips 7-10 days Cleanse incision/area with: Soap & Water Additional Instructions: No carbonated beverages, no straws. Crush any pills for next 2 weeks Allergies/Adverse Reactions: Allergies azithromycin Allergy (Mild, Verified 10/03/19 10:27) Other Penicillins Allergy (Mild, Verified 10/03/19 10:27) Unknown Sulfa (Sulfonamide Antibiotics) Allergy (Mild, Verified 10/03/19 10:27) Unknown Medications to take at Discharge apple cider vinegar 600 mg capsule 600 mg PO DAILY PRN cap 08/09/19 bile jkfwq-rzsg-jsvf-phenolpth tablet 1 tab PO DAILY tab 08/09/19 cholecalciferol (vitamin D3) 1,000 unit capsule 1,000 unit PO DAILY 08/09/19 choline bitartrate ER 300 mg tablet,extended release 300 mg PO DAILY tab 08/09/19 digestive enzymes capsule 1 cap PO DAILY 08/09/19 g.vnwd-sqqxjdv-uin clover-yl zt-omse-hfzi-milk thist 500 mg-100 mg cap 1 cap PO DAILY cap 08/09/19 josé antonio root 325 mg-pyridoxine HCl (vitamin B6) 25 mg capsule 1 cap PO DAILY cap 08/09/19 progesterone micronized 100 mg capsule 100 mg PO QHS 08/09/19 Acetaminophen Liquid [Tylenol Liquid] 650 mg PO Q6H PRN PRN 5 Days #500 ml 10/04/19 The following prescriptions were given: Acetaminophen Liquid [Tylenol Liquid] 650 mg PO Q6H PRN PRN 5 Days #500 ml PRN Reason: Pain Score 4-10/10 Transmission Status: Pending to [facility] Primary Care Physician: Rubens Dougherty MD [Primary Care Provider] - Test Results: Test results from this visit will be discussed in further detail at your follow- up appointment, if applicable. Please Follow Up With: Musa Vizcaino MD When: Please call to schedule 1-2 week follow up appointment. [phone]
[2019-10-04] MEDS: Acetaminophen 650 MG/20 ML UDC PO (15:26)
== END 2019-10-04 15:35 | disposition home or self-care (01) ==
LOC: SDC 15:43 → MS3 15:43
PROVIDERS: Admitting Provider Surgery; Family Provider Family Medicine; PCP Family Medicine; Referring Provider Surgery; Visit Provider Surgery
PROC: (CPT 43325; principal; 2019-10-03 11:30)
DX: K21.9 Gastro-esophageal reflux disease without esophagitis (principal); K80.10 Calculus of gallbladder with chronic cholecystitis without obstruction; M79.7 Fibromyalgia; Z79.899 Other long term (current) drug therapy; F41.9 Anxiety disorder, unspecified; F32.9 Major depressive disorder, single episode, unspecified; K58.9 Irritable bowel syndrome, unspecified
CPT/HCPCS: 00790; 43280; 47563; 36415; 74300; 76000; 80048; 85025; 88304; 93005; 96374; 96375; 96376; 99218; 99251; J7030; J7120; G0378; G0379; G0463; J2405